=== PATIENT | female | born 2005 | race Caucasian/White ===

== ENCOUNTER 2025-08-11 18:02 | Emergency (ER) | payer BC ==
[~2025-08-11] VITALS: Ht 165.1 cm; Wt 58.1 kg
[2025-08-11 18:10] VITALS: TEMP 98.3
[2025-08-11] MEDS ORDERED: ONDANSETRON HCL/PF 4 MG/2 ML VIAL ONE (18:36)
[2025-08-11] MEDS: ONDANSETRON HCL/PF 4 MG/2 ML VIAL IVP ONE (18:45)
[2025-08-11] MEDS: IV NS 0.9% 500 ML BAG IV ONE (18:45)
[2025-08-11 18:50] LABS: PLATELET COUNT (AUTO) 328 K/uL (150-450); RED BLOOD CELL COUNT(AUTO) 4.72 MIL/uL (4.0-5.2); RED CELL DISTRIBUTION WIDTH 12.6 % (11.5-15.0); WHITE BLOOD COUNT (AUTO) 10.2 K/uL (4.3-11.0)
[2025-08-11 18:57] LABS: CALCIUM, SERUM 8.7 mg/dL (8.5-10.1); CREATININE 0.6 mg/dL (0.6-1.3); SODIUM SERUM 141.0 mmol/L (136-145); UREA NITROGEN, BLOOD 7.0 mg/dL (7-18)
[2025-08-11 19:01] LABS: INR 0.94 (0.91-1.10)
[2025-08-11] MEDS ORDERED: HYDROCODONE/APAP 5/325MG TABLET ONE ×2 (19:09→20:10)
[2025-08-11] MEDS: HYDROCODONE/APAP 5/325MG TABLET PO ONE ×2 (19:12→20:14)
[2025-08-11] MEDS ORDERED: HYDR-3976 PO (19:32)
[2025-08-11] MEDS ORDERED: ONDA4TAB5 PO (19:32)
[2025-08-11 19:42] LABS: APPEARANCE,URINE CLEAR (CLEAR); BLOOD, URINE Trace-intact Ery/uL (NEGATIVE); LEUKOCYTE ESTERASE ,URINE Negative (NEGATIVE); NITRITE, URINE NEGATIVE (NEGATIVE); UGLUCOSE Negative (NEGATIVE)
[2025-08-11 19:44] LABS: ADD URINE CULTURE NO; PREGNANCY TEST URINE QUAL NEGATIVE (NEGATIVE); SQUAMOUS EPITHELIAL CELL,UR Few /HPF (None Seen)
[2025-08-11 20:17] VITALS: BP 110/80; O2SAT 97
== END 2025-08-11 20:15 | disposition home or self-care (01) ==
LOC: ER 18:06
DX: S63.501A Unspecified sprain of right wrist, initial encounter (principal); N80.9 Endometriosis, unspecified; Z79.891 Long term (current) use of opiate analgesic; Z88.5 Allergy status to narcotic agent; W19.XXXA Unspecified fall, initial encounter; Y93.89 Activity, other specified; Y92.89 Other specified places as the place of occurrence of the external cause; Y99.8 Other external cause status
CPT/HCPCS: 99285; 96374; 76856; 85025; 80048; 84703; 81001; 36415; 85730; J2405; J7040